=== PATIENT | female | born 1980 | race Caucasian/White ===

== ENCOUNTER 2022-09-05 07:32 | Outpatient (CLI) | payer BC | END 2022-09-05 07:33 | disposition home or self-care (01) | LOC: CSHCT 07:32 | PROVIDERS: ATTEND Physician Assistant Medical | DX: R16.1 Splenomegaly, not elsewhere classified (principal); R10.11 Right upper quadrant pain; R10.12 Left upper quadrant pain; K76.0 Fatty (change of) liver, not elsewhere classified; R11.2 Nausea with vomiting, unspecified | CPT/HCPCS: 74177 ==

== ENCOUNTER 2023-02-26 07:41 | Outpatient (CLI) | payer BC | END 2023-02-26 07:42 | disposition home or self-care (01) | LOC: CSHMRI 07:41 | PROVIDERS: ATTEND Psychiatry & Neurology Neurology | DX: R41.3 Other amnesia (principal) | CPT/HCPCS: 70551 ==

== ENCOUNTER 2024-04-14 12:17 | Outpatient (CLI) | payer BC | END 2024-04-14 12:18 | disposition home or self-care (01) | LOC: CSHMRI 12:17 | PROVIDERS: ATTEND Internal Medicine Rheumatology | DX: M54.50 Low back pain, unspecified (principal); M47.816 Spondylosis without myelopathy or radiculopathy, lumbar region; M48.061 Spinal stenosis, lumbar region without neurogenic claudication | CPT/HCPCS: 72148 ==